=== PATIENT | female | born 1985 | race Caucasian/White ===

== ENCOUNTER 2017-02-02 19:34 | Emergency (ER) | payer OTHER ==
--- NOTE | ~2017-02-02 | CR63 ---
[facility] A Service of [facility] & [facility] RADIOLOGY TEXT RESULTS PATIENT: CHAYITO FIGUEROA LOCATION: SED : [birth year] UNIT #: [id number] AGE: [address]: JOSÉ ANTONIO MORALES SEX: F ORDER DR: [id number] [place] [id number] E MR#: [id number] Acc #: [id number] NAME: CHAYITO FIGUEROA : 1985 SEX: F STUDY DATE/TIME: 02/02/2017 20:03 UNIT: SED ROOM: STUDY DESCRIPTION: CR Chest 2 View Attending Physician: José Antoino Morales Ordering Physician: Physician Non-Staff Primary Care Physician: Naz Quevedo M.D. MEDICAL IMAGING REPORT This report is preliminary unless electronic signature is present. EXAM Two-view chest, 02/02/2017. HISTORY 31-year-old female with cough and congestion for 3 days. COMPARISON Chest, 10/04/2016. FINDINGS Two views of the chest demonstrate clear lungs. No pleural effusion or pneumothorax. Heart size and mediastinum are normal. Pulmonary vasculature normal. IMPRESSION No acute cardiopulmonary findings. Dictated by... Dionicio Nguyen M.D. THIS IS AN ELECTRONICALLY VERIFIED REPORT Dionicio Nguyen M.D. at 02/05/2017 7:19 AM ORQUIDEA/adonay TD: 02/03/2017 07:41 JOB #: [id number] MEDICAL IMAGING REPORT Page 1 of 1
[~2017-02-02 19:34] MED LIST: AMBIEN10 MG PO; BACLOFEN20 MG PO; BACTRIM DS TABL1 TA1 PO; DARVOCET-N 1001 TAB; EXCEDRIN BACK1 EACH PO; EXLAX; FLAGYL; FLEXERIL10 M1 PO; FLEXERIL10 MG PO; FLONASE 0.05% N16 G1; HYDROCODON-ACE1 EAC5 PO; IBUPROFEN800 MG PO; LASIX PO; LIDODERM30 EA TOP; LISINOPRIL-HCTZ1 T19 PO; LISINOPRIL10 MG PO; LORTAB 5/500 TA1 TA2 PO; MIRALAX119 GM PO; NAPROSYN500 MG PO; NO MEDICATIONS; NORVASC PO; OXYCONTIN40 MG PO; PHENERGAN25 M1 PO; PHENERGAN25 MG PO; POTASSIUM CHLO10 ME1 PO; PREDNISONE PO; PRILOSEC40 MG PO; PROAIR HFA8.5 GM IH; PROAIR HFA8.5 GM INH; PROVENTIL2 MG IH; ROBITUSSIN A-C S5 ML PO; ROBITUSSIN100 MG/51 PO; SINGULAIR PO; SYMBICORT80 INH; TRILIPIX135 MG PO; TUMS; VESICARE PO; XYZAL5 MG PO; ZOVIA
== END 2017-02-02 21:05 | disposition home or self-care (01) ==
LOC: SED 19:34
DX: J20.9 Acute bronchitis, unspecified (principal); I10 Essential (primary) hypertension; F17.210 Nicotine dependence, cigarettes, uncomplicated
CPT/HCPCS: 71020; 94640; 99284

== ENCOUNTER 2017-05-18 18:25 | Emergency (ER) | payer OTHER ==
[2017-05-18 19:40] LABS: URINE SOURCE CLEAN CATCH
[2017-05-18 19:43] LABS: URINE APPEARANCE CLEAR; URINE BILIRUBIN NEG (NEG); URINE BLOOD NEG (NEG); URINE COLOR YELLOW; URINE GLUCOSE NEG (NORM); URINE KETONE TRACE (NEG); URINE LEUKOCYTE ESTERASE NEG (NEG); URINE NITRATE NEG (NEG); URINE PROTEIN NEG (NEG); URINE UROBILINOGEN 0.2 MG/DL (NORM)
[2017-05-18 19:45] LABS: BASOPHIL# 0.1 X10e3 (0-0.3); BASOPHIL% 0.8 % (0-2.5); DIFF IND NO; EOSINOPHIL# 0.3 X10e3 (0-0.7); EOSINOPHIL% 3.1 % (0.0-7.0); HEMATOCRIT 40.7 % (35.0-45.0); LYMPHOCYTE# 1.8 X10e3 (1.0-3.5); LYMPHOCYTE% 19.4 % (17.0-45.0); MEAN CELL VOLUME 85.4 FL (83-96); MEAN CORPUSCULAR HEMOGLOBIN 29.4 PG (28-34); MEAN CORPUSCULAR HGB CONC 34.4 g/dL (30-36); MEAN PLATELET VOLUME 8.8 FL (6.5-11.5); MICRO INDICATED? NO; MONOCYTE# 0.7 X10e3 (0-1.0); MONOCYTE% 6.9 % (3.0-12.0); NEUTROPHIL# 6.6 X10e3 (1.5-7.1); NEUTROPHIL% 69.8 % (40-75); PLATELET COUNT 241 X10e3 (140-420); RED BLOOD COUNT 4.76 X10e (3.90-5.30); RED CELL DISTRIBUTION WIDTH 13.6 % (11.0-15.5); WHITE BLOOD COUNT 9.4 X10e3 (4.0-10.5)
[2017-05-18 20:01] LABS: ALBUMIN SERUM 4.2 g/dL (3.5-5.0); ALKALINE PHOSPHATASE 83 U/L (32-92); ALT (SGPT) 16 U/L (10-40); AMYLASE 20 U/L (0-46); AST (SGOT) 14 U/L (10-42); BILIRUBIN, DIRECT <0.1 mg/dL (0.0-0.2); BILIRUBIN,INDIRECT 0.3 mg/dL (0.0-0.9); BILIRUBIN,TOTAL 0.4 mg/dL (0.2-2.0); BLOOD UREA NITROGEN 22 mg/dL (9-23); BUN/CREATININE RATIO 13.75; CALCIUM SERUM 8.9 mg/dL (8.4-10.2); CARBON DIOXIDE 25 mmol/L (22-31); CHLORIDE 103 mmol/L (100-111); CREATININE SERUM 1.6 mg/dL (0.6-1.4); GLOM FILT RATE Estimated 42.2 mL/min (>60); GLUCOSE FASTING 84 mg/dL (70-110); LIPASE 32 U/L (22-51); POTASSIUM 4.3 mmol/L (3.5-5.1); PROTEIN TOTAL SERUM 7.2 g/dL (6.0-8.3); SODIUM 136 mmol/L (135-145)
== END 2017-05-18 21:49 | disposition home or self-care (01) ==
LOC: SED 18:25
PROVIDERS: Emergency Medicine
DX: E86.0 Dehydration (principal); R10.9 Unspecified abdominal pain
CPT/HCPCS: 36415; 80048; 80076; 81003; 82150; 83690; 84703; 85025; 96361; 96372; 96374; 99284; J0500; J1885